=== PATIENT | male | born 1975 | race Caucasian/White ===

== ENCOUNTER → 2021-03-22 | Outpatient (CLI) | payer BC ==
[2021-03-22 13:35] LABS: HEMOGLOBIN 15.2 gm/dl (14.0-17.5); RED BLOOD COUNT 5.41 M/UL (4.20-5.50); WHITE BLOOD COUNT 4.5 K/UL (4.5-11.0)
[2021-03-22 13:58] LABS: BUN/CREATININE RATIO 11 (0-10)
[2021-03-23 08:14] LABS: ESTRADIOL <5.0 pg/mL (7.6-42.6)
[2021-03-25 15:08] LABS: TESTOSTERONE, SERUM 315 ng/dL (264-916)
== END ==
LOC: LAB 13:04
PROVIDERS: Urology
DX: E29.1 Testicular hypofunction (principal)
CPT/HCPCS: 36415; 80053; 82670; 84153; 84402; 84403; 85027

== ENCOUNTER → 2021-09-21 | Outpatient (CLI) | payer BC | LOC: RAD 07:57 | DX: M50.322 Other cervical disc degeneration at C5-C6 level (principal); M51.34 Other intervertebral disc degeneration, thoracic region | CPT/HCPCS: 72050; 72072 ==

== ENCOUNTER → 2021-11-16 | Outpatient (CLI) | payer BC ==
[2021-11-16 15:29] LABS: HEMOGLOBIN 13.9 gm/dl (14.0-17.5); RED BLOOD COUNT 5.18 M/UL (4.20-5.50); WHITE BLOOD COUNT 5.6 K/UL (4.5-11.0)
[2021-11-16 15:55] LABS: BUN/CREATININE RATIO 17 (0-10)
[2021-11-17 09:14] LABS: ESTRADIOL <5.0 pg/mL (7.6-42.6)
[2021-11-19 23:09] LABS: TESTOSTERONE, SERUM 186 ng/dL (264-916)
== END ==
LOC: LAB 14:39
PROVIDERS: Urology
DX: E29.1 Testicular hypofunction (principal)
CPT/HCPCS: 36415; 80053; 82670; 84153; 84402; 84403; 85027

== ENCOUNTER → 2021-11-20 | Outpatient (CLI) | payer BC | LOC: KOH-I 11-10 15:15 | DX: M47.22 Other spondylosis with radiculopathy, cervical region (principal); M25.78 Osteophyte, vertebrae; M48.02 Spinal stenosis, cervical region | CPT/HCPCS: 72141 ==